=== PATIENT | female | born 1985 | race African-American/Black ===

== ENCOUNTER 2017-02-03 05:13 | Emergency (ER) | payer OTHER ==
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
[~2017-02-03 05:13] MED LIST: CLEOCIN HCL300 M1 PO; IBUPROFEN800 MG PO
== END 2017-02-03 06:25 | disposition home or self-care (01) ==
LOC: CED 05:13
DX: S16.1XXA Strain of muscle, fascia and tendon at neck level, initial encounter (principal); S20.212A Contusion of left front wall of thorax, initial encounter; F17.210 Nicotine dependence, cigarettes, uncomplicated; Z88.0 Allergy status to penicillin; V43.52XA Car driver injured in collision with other type car in traffic accident, initial encounter; Y92.410 Unspecified street and highway as the place of occurrence of the external cause
CPT/HCPCS: 71020; 72040; 99284